=== PATIENT | male | born 1960 | race Caucasian/White ===

== ENCOUNTER 2018-11-12 09:10 | Inpatient (IN) ==
[2018-11-12] MEDS ORDERED: SODIUM CHLORIDE 0.9% 1000ML 1,000 ML IV SCH (09:30)
--- NOTE | 2018-11-12 09:34 | Emergency Department Note ---
Entered by Traci Johnson acting as a scribe for Clifford Mireles DO History of Present Illness General Chief complaint: Neuro Symptoms/Deficit Source: EMS Limitations: altered mental status History of Present Illness Onset (ago): day(s) 2 Location: head Pain Consistency: + other (episode) Quality: + other (altered mental status, neuro symptoms) Associated symptoms: + other (cold symptoms); no fever/chills (fever) The patient is a 58-year-old male who presented to the emergency department via EMS. The patient is unable to give history so history is extremely limited. History was obtained from the prehospital personnel. The patient was last known well on Saturday. Apparently he lives [place] a convenience store and the people to the [facility] for state that he was complaining that he did not feel well last week and had cold symptoms. The patient had no reported fever. His last known well time was Saturday when he was seen at the store buying cold medication. The patient has no history of trauma. The patient offers no complaints at this time but when asked questions he only answers with his name or he asked about where his sister is. The patient's blood sugar was not low prior to arrival. The prehospital personnel called for medical command prior to arrival but the patient was not made a stroke alert because his last known well time was greater than 24 hours ago. Home Medications Home Medications Medication Instructions Recorded Confirmed Type No Known Home Medications 11/12/18 11/12/18 History Allergies Allergy/AdvReac Type Severity Reaction Status Date / Time [id number] Allergy Mild Uncoded 02/19/06 12:38 Past Med/Surg History Surgical History History of lumbar fusion Family History Other No significant family history Social History Preferred Language: Macedonian Beliefs That Will Affect Care: None marital status: Current Living Situation: Alone current occupational status: disabled Feels Safe at Home: Yes Smoking Status: Current every day smoker Hx Alcohol Use: No Hx Substance Use: No Review of Systems See HPI for pertinent positives & negatives. Unobtainable due to cognitive status Physical Exam Vital Signs Vital Signs - 24 hr 11/12/18 09:15 11/12/18 09:18 11/12/18 09:29 Temperature 36.4 C L Temperature Source Oral Sepsis Recent Fever Within 48 Hours No Sepsis New/Unexplained Change in Mental Status Yes Sepsis Action Taken by Nursing No Action Required Pulse Rate 97 H 93 H 96 H Pulse Rate [Apical] Pulse Rate [Finger] Pulse Rate from SpO2 Sensor 97 H 93 H Pulse Rhythm [Apical] Pulse Strength [Apical] Respiratory Rate 21 19 22 Respiratory Effort / Characteristics Respiratory Depth Respiratory Pattern Blood Pressure 190/97 H 190/97 H Blood Pressure [Right Arm] Blood Pressure Mean 128 128 Blood Pressure Mean [Right Arm] Blood Pressure Position [Right Arm] Pulse Oximetry 94 94 92 Oxygen Delivery Method Room Air Oxygen Flow Rate 11/12/18 09:30 11/12/18 10:08 11/12/18 10:24 Temperature Temperature Source Sepsis Recent Fever Within 48 Hours Sepsis New/Unexplained Change in Mental Status Sepsis Action Taken by Nursing Pulse Rate 93 H 83 Pulse Rate [Apical] 82 Pulse Rate [Finger] Pulse Rate from SpO2 Sensor 92 H 86 84 Pulse Rhythm [Apical] Pulse Strength [Apical] Respiratory Rate 25 H 20 Respiratory Effort / Characteristics Respiratory Depth Normal Respiratory Pattern Blood Pressure 175/93 H Blood Pressure [Right Arm] 175/93 H Blood Pressure Mean 120 Blood Pressure Mean [Right Arm] 120 Blood Pressure Position [Right Arm] Pulse Oximetry 89 L 89 L 92 Oxygen Delivery Method Room Air Oxygen Flow Rate 11/12/18 10:25 11/12/18 10:30 11/12/18 10:50 Temperature Temperature Source Sepsis Recent Fever Within 48 Hours Sepsis New/Unexplained Change in Mental Status Sepsis Action Taken by Nursing Pulse Rate 78 Pulse Rate [Apical] Pulse Rate [Finger] Pulse Rate from SpO2 Sensor 79 Pulse Rhythm [Apical] Pulse Strength [Apical] Respiratory Rate 21 Respiratory Effort / Characteristics Non-Labored Spontaneous Respiratory Depth Normal Respiratory Pattern Regular Blood Pressure Blood Pressure [Right Arm] Blood Pressure Mean Blood Pressure Mean [Right Arm] Blood Pressure Position [Right Arm] Pulse Oximetry 92 96 Oxygen Delivery Method Nasal Cannula Nasal Cannula Oxygen Flow Rate 2 2 11/12/18 11:00 11/12/18 11:01 11/12/18 11:30 Temperature Temperature Source Sepsis Recent Fever Within 48 Hours Sepsis New/Unexplained Change in Mental Status Sepsis Action Taken by Nursing Pulse Rate 82 81 84 Pulse Rate [Apical] Pulse Rate [Finger] Pulse Rate from SpO2 Sensor 83 81 84 Pulse Rhythm [Apical] Pulse Strength [Apical] Respiratory Rate 21 17 20 Respiratory Effort / Characteristics Respiratory Depth Respiratory Pattern Blood Pressure 163/104 H Blood Pressure [Right Arm] Blood Pressure Mean 123 Blood Pressure Mean [Right Arm] Blood Pressure Position [Right Arm] Pulse Oximetry 97 96 94 Oxygen Delivery Method Oxygen Flow Rate 11/12/18 13:02 11/12/18 15:11 11/12/18 15:40 Temperature 36.8 C 36.8 C Temperature Source Oral Oral Sepsis Recent Fever Within 48 Hours Sepsis New/Unexplained Change in Mental Status Sepsis Action Taken by Nursing Pulse Rate Pulse Rate [Apical] 78 Pulse Rate [Finger] 82 Pulse Rate from SpO2 Sensor Pulse Rhythm [Apical] Regular Pulse Strength [Apical] Normal Respiratory Rate 20 18 Respiratory Effort / Characteristics Non-Labored Spontaneous Non-Labored Spontaneous Respiratory Depth Normal Normal Respiratory Pattern Regular Regular Blood Pressure Blood Pressure [Right Arm] 168/84 H 152/83 H Blood Pressure Mean Blood Pressure Mean [Right Arm] 112 106 Blood Pressure Position [Right Arm] Lying Lying Pulse Oximetry 93 94 Oxygen Delivery Method Nasal Cannula Nasal Cannula Nasal Cannula Oxygen Flow Rate 2 2 2 11/12/18 16:00 11/12/18 19:49 11/12/18 23:30 Temperature 36.7 C Temperature Source Oral Sepsis Recent Fever Within 48 Hours Sepsis New/Unexplained Change in Mental Status Sepsis Action Taken by Nursing Pulse Rate 78 Pulse Rate [Apical] Pulse Rate [Finger] 78 Pulse Rate from SpO2 Sensor Pulse Rhythm [Apical] Pulse Strength [Apical] Respiratory Rate 20 Respiratory Effort / Characteristics Non-Labored Spontaneous Respiratory Depth Respiratory Pattern Blood Pressure Blood Pressure [Right Arm] 155/81 H Blood Pressure Mean Blood Pressure Mean [Right Arm] 105 Blood Pressure Position [Right Arm] Lying Pulse Oximetry 94 Oxygen Delivery Method Nasal Cannula Nasal Cannula Oxygen Flow Rate 2 4 11/12/18 23:43 11/13/18 03:18 11/13/18 04:47 Temperature 36.6 C 36.7 C 36.7 C Temperature Source Oral Oral Sepsis Recent Fever Within 48 Hours Sepsis New/Unexplained Change in Mental Status Sepsis Action Taken by Nursing Pulse Rate Pulse Rate [Apical] 78 Pulse Rate [Finger] 72 79 79 Pulse Rate from SpO2 Sensor Pulse Rhythm [Apical] Pulse Strength [Apical] Respiratory Rate 22 18 18 Respiratory Effort / Characteristics Respiratory Depth Respiratory Pattern Blood Pressure Blood Pressure [Right Arm] 124/62 115/66 115/66 Blood Pressure Mean Blood Pressure Mean [Right Arm] 82 82 Blood Pressure Position [Right Arm] Pulse Oximetry 95 95 95 Oxygen Delivery Method Oxygen Flow Rate 4 4 GENERAL: The patient is awake and looking around the room. He follows commands slowly and intermittently. He appears to be somewhat anxious. EYES: The conjunctivae are clear. The pupils are round and reactive. EARS, NOSE, MOUTH AND THROAT: The nose is without any evidence of any deformity. Mucous membranes are moist tongue is midline NECK: The neck is nontender and supple. RESPIRATORY: Diminished breath sounds are noted at the right base. There is no tachypnea or conversational dyspnea. CARDIOVASCULAR: Regular rate and rhythm noted there no murmurs rubs or gallops normal S1 normal S2 GASTROINTESTINAL: The abdomen is soft. Bowel sounds are present in all quadrants. Abdomen is nontender BACK: No midline tenderness or or step-off noted range of motion in flexion extension as well as rotation no signs of muscle spasm noted MUSCULOSKELETAL/EXTREMITIES: There is no evidence of gross deformity full range of motion is noted in the hips and shoulders SKIN: There is no obvious evidence of any rash. No pedal edema was noted. Patient has cuts over his face that appear to be from shaving. He also has a slight rash on his right flank which is easily blanchable. NEUROLOGIC: Patient is awake and oriented to name only. He does follow com mands slowly. Patellar tendon reflexes are 2+ bilaterally. No facial droop was noted. Die Hardener strength appeared symmetric but diminished. Course 0926: Past medical records reviewed. The patient was evaluated in room A9B, and a complete history and physical examination were performed. 1045: I reviewed the patient's case with Dr. Pat PECK Hospitalist. He will evaluate the patient for further management. 1100: I spoke to the patient's daughter at this time and updated her on his test results. She informed me that he is a smoker and never goes to the doctors. She reports that when he comes to he is going to be extremely mad that he is at the hospital. Consultations Consultation #1: I reviewed the patient's case with Dr. Pat PECK Hospitalist. He will evaluate the patient for further management. Time: 10:45 Administered Medications Discontinued Medications Dexamethasone (Decadron) 10 mg IV NOW STA Stop: 11/12/18 09:47 Last Admin: 11/12/18 10:28 Dose: 10 mg Documented by: [id number] Gadobutrol (Gadavist 65ml) 8 ml IV ONCE PRN PRN Reason: Interaction Checking Stop: 11/16/18 19:31 Last Admin: 11/12/18 19:33 Dose: 8 ml Documented by: [id number] Heparin Sodium/Dextrose () 1 ea N/A ONE ONE; Protocol Stop: 11/12/18 10:40 Last Admin: 11/12/18 11:28 Dose: 1 ea Documented by: [id number] Heparin Sodium/Dextrose (Heparin Sodium/Dextrose) Confirm Administered Dose 25,000 units IV .STK-MED ONE Stop: 11/12/18 11:22 Last Admin: 11/12/18 11:26 Dose: 28 ml Documented by: [id number] Cosigned by: [id number] Heparin Sodium/Dextrose () 1 ea IV Q15M EMPERATRIZ; Protocol Stop: 11/13/18 04:00 Last Admin: 11/13/18 02:09 Dose: Not Given Documented by: [id number] Sodium Chloride (Nss 1000ml) 1,000 mls @ 50 mls/hr IV .Q20H EMPERATRIZ Stop: 12/12/18 09:29 Last Admin: 11/12/18 10:28 Dose: 50 mls/hr Documented by: [id number] Ceftriaxone Sodium 2,000 mg/ (Dextrose) 70 mls @ 100 mls/hr IV NOW STA Stop: 11/12/18 10:27 Last Infusion: 11/12/18 11:29 Dose: 0 mls/hr Documented by: [id number] Admin: 11/12/18 10:28 Dose: 100 mls/hr Documented by: [id number] Vancomycin HCl 1,750 mg/ (Sodium Chloride) 535 mls @ 200 mls/hr IV ONE ONE Stop: 11/12/18 13:25 Last Infusion: 11/12/18 14:51 Dose: 0 mls/hr Documented by: [id number] Admin: 11/12/18 11:26 Dose: 200 mls/hr Documented by: [id number] Ampicillin Sodium 2,000 mg/ (Sodium Chloride) 100 mls @ 200 mls/hr IV ONE ONE Stop: 11/12/18 11:59 Last Infusion: 11/12/18 12:12 Dose: 0 mls/hr Documented by: [id number] Admin: 11/12/18 11:45 Dose: 200 mls/hr Documented by: [id number] Sodium Chloride (Nss 1000ml) 1,000 mls @ 999 mls/hr IV .Q1H1M ONE Stop: 11/12/18 11:32 Last Infusion: 11/12/18 14:51 Dose: 0 mls/hr Documented by: [id number] Admin: 11/12/18 11:31 Dose: 999 mls/hr Documented by: [id number] Piperacillin Sod/Tazobactam (Sod 3.375 gm/ Dextrose) 115 mls @ 28.75 mls/hr IV Q8H EMPERATRIZ; Protocol Stop: 11/14/18 19:59 Last Infusion: 11/13/18 00:54 Dose: 0 mls/hr Documented by: [id number] Admin: 11/12/18 20:45 Dose: 28.8 mls/hr Documented by: [id number] Potassium Chloride 20 meq/ (Lactated Ringer's) 1,010 mls @ 125 mls/hr IV .Q8H5M EMPERATRIZ Stop: 11/13/18 05:45 Last Admin: 11/12/18 14:23 Dose: 125 mls/hr Documented by: [id number] Azithromycin 500 mg/ Dextrose 255 mls @ 127.5 mls/hr IV NOW STA Stop: 11/12/18 15:13 Last Infusion: 11/12/18 16:25 Dose: 0 mls/hr Documented by: [id number] Admin: 11/12/18 14:24 Dose: 127.5 mls/hr Documented by: [id number] Vancomycin HCl 1,000 mg/ (Sodium Chloride) 270 mls @ 125 mls/hr IV Q12H EMPERATRIZ Stop: 11/14/18 12:57 Last Admin: 11/12/18 13:37 Dose: Not Given Documented by: [id number] Piperacillin Sod/Tazobactam (Sod 3.375 gm/ Dextrose) 115 mls @ 230 mls/hr IV ONE ONE; Protocol Stop: 11/12/18 16:29 Last Infusion: 11/12/18 15:11 Dose: 0 mls/hr Documented by: [id number] Admin: 11/12/18 14:23 Dose: 230 mls/hr Documented by: [id number] Heparin Sodium/Dextrose (Heparin Sodium/Dextrose) 25,000 units in 500 mls @ 28 mls/hr IV .[id number] EMPERATRIZ; Protocol Stop: 12/12/18 13:59 Last Admin: 11/12/18 14:53 Dose: 1,400 units/hr, 28 mls/hr Documented by: [id number] Cosigned by: [id number] Potassium Phosphate 15 mmol/ (Sodium Chloride) 255 mls @ 88 mls/hr IV ONE ONE Stop: 11/12/18 18:08 Last Infusion: 11/13/18 01:25 Dose: 0 mls/hr Documented by: [id number] Admin: 11/12/18 15:42 Dose: 88 mls/hr Documented by: [id number] Vancomycin HCl 1,250 mg/ (Sodium Chloride) 275 mls @ 125 mls/hr IV Q14H EMPERATRIZ Stop: 11/14/18 21:59 Last Admin: 11/13/18 02:06 Dose: 125 mls/hr Documented by: [id number] Heparin Sodium (Porcine) 6,000 (units/ Syringe) 6 mls @ 1 mls/min IV ONE ONE Stop: 11/12/18 18:35 Last Admin: 11/12/18 20:44 Dose: 1 mls/min Documented by: [id number] Cosigned by: [id number] Sodium Phosphate 15 mmol/ (Sodium Chloride) 255 mls @ 88 mls/hr IV ONE ONE Stop: 11/12/18 23:08 Last Infusion: 11/13/18 01:25 Dose: 0 mls/hr Documented by: [id number] Admin: 11/12/18 20:44 Dose: 88 mls/hr Documented by: [id number] Ioversol (Optiray 320 125ml) 119 ml IV ONCE PRN PRN Reason: Interaction Checking Stop: 11/16/18 10:10 Last Admin: 11/12/18 10:12 Dose: 119 ml Documented by: [id number] Lidocaine HCl (Xylocaine 1% (Local)) Confirm Administered Dose 20 ml .ROUTE .STK-MED ONE Stop: 11/12/18 10:06 Last Admin: 11/12/18 10:29 Dose: Not Given Documented by: [id number] Lidocaine HCl (Xylocaine 1% (Local)) 10 ml INFIL NOW ONE Stop: 11/12/18 10:07 Last Admin: 11/12/18 10:28 Dose: 10 ml Documented by: [id number] Medical Decision Making Differential Diagnosis Etiologies such as metabolic, infection, hyp/hyperglycemia, electrolyte abnormalities, cardiac sources, intracerebral event, toxicologic, neurologic, as well as others were entertained. Medical Records Attestation: I reviewed the patient's medical records. Home Medications Current Medication List: was personally reviewed by me Laboratory Data Attestation: I reviewed the patient's lab results. Result diagrams: 11/12/18 08:45 11/12/18 08:45 Lab Results 11/12/18 11/12/18 11/12/18 Range/Units 08:45 08:45 08:45 WBC 13.67 H (4.8-10.8) K/uL RBC 5.47 (4.7-6.1) M/uL Hgb 15.8 (14.0-18.0) g/dL Hct 45.0 (42-52) % MCV 82.3 (80-100) fL MCH 28.9 (25-34) pg MCHC 35.1 (32-36) g/dL RDW Std Deviation 38.7 (36.4-46.3) fL RDW Coeff of Jayshree 12.8 (11.5-14.5) % Plt Count 170 (130-400) K/uL MPV 9.9 (7.4-10.4) fL Immature Gran % (Auto) 0.4 % Neut % (Auto) 80.8 % Lymph % (Auto) 4.8 % [place] % (Auto) 9.7 % Eos % (Auto) 4.1 % Baso % (Auto) 0.2 % Immature Gran # (Auto) 0.05 H (0.00-0.02) K/uL Neut # (Auto) 11.04 H (1.4-6.5) K/uL Lymph # (Auto) 0.66 L (1.2-3.4) K/uL [place] # (Auto) 1.33 H (0.11-0.59) K/uL Eos # (Auto) 0.56 H (0-0.5) K/uL Baso # (Auto) 0.03 (0-0.2) K/uL PT 11.8 (9.0-12.0) Seconds INR 1.2 H (0.9-1.1) APTT 27.3 (21.0-31.0) Seconds PTT Ratio 1.0 ABG pH (7.35-7.45) ABG pCO2 (35-46) mmHg ABG pO2 (80-95) mm/Hg ABG HCO3 (19-24) mmol/L ABG O2 Saturation (90-95) % ABG Base Excess (-9-1.8) mEq/L Cheikh Test (Pos) Barometric Pressure mm/Hg Oxygen Given Sodium 136 (136-145) mmol/L Potassium 3.4 L (3.5-5.1) mmol/L Chloride 105 (98-107) mmol/L Carbon Dioxide 25 (21-32) mmol/L Anion Gap 6.0 (3-11) BUN 15 (7-18) mg/dl Creatinine 1.12 (0.6-1.4) mg/dl Est Cr Clr Drug Dosing Not Reportable Est GFR ( Amer) 82.3 Est GFR (Non-Af Amer) 71.0 BUN/Creatinine Ratio 13.3 (10-20) Glucose 152 H (70-99) mg/dl POC Glucose (70-99) Estimat Average Glucose mg/dl Hemoglobin A1c (4.5-5.6) % Osmolality (280-300) mOsm/kg Calcium 8.8 (8.5-10.1) mg/dl Phosphorus (2.5-4.9) mg/dl Magnesium 2.2 (1.8-2.4) mg/dl Total Bilirubin 0.6 (0.2-1) mg/dl AST 26 (15-37) U/L ALT 33 (12-78) U/L Alkaline Phosphatase 122 H (45-117) U/L Ammonia (11-32) umol/L CK-MB (CK-2) 1.2 (0.5-3.6) ng/ml CK/CKMB % Calc Not Reportable Troponin I 0.298 H* (0-0.045) ng/ml NT-Pro-B Natriuret Pep (0-900) pg/ml Total Protein 7.7 (6.4-8.2) gm/dl Albumin 3.4 (3.4-5.0) gm/dl Globulin 4.3 H (2.5-4.0) gm/dl Albumin/Globulin Ratio 0.8 L (0.9-2) Procalcitonin (0-0.5) ng/ml TSH (0.300-4.500) uIu/ml Free T4 (0.8-1.6) ng/dl Urine Color Urine Appearance (Clear) Urine pH (4.5-7.5) Ur Specific [place] (1.000-1.030) Urine Protein (Negative) Urine Glucose (UA) (Negative) Urine Ketones (Negative) Urine Blood (Negative) Urine Nitrite (Negative) Urine Bilirubin (Negative) Urine Urobilinogen (Negative) Ur Leukocyte Esterase (Negative) Urine Opiates Screen (Neg) Ur Methadone, Qual (Neg) Urine Barbiturates (Neg) Ur Phencyclidine (PCP) (Neg) U Amphetamin/Meth Scrn (Neg) MDMA (Ecstasy) Screen (Neg) U Benzodiazepines Scrn (Neg) Ur Cocaine Metabolite (Neg) U Marijuana (THC) Screen (Neg) Ethyl Alcohol mg/dL (0-3) mg/dl Lyme Disease IgG Ab (Negative) Lyme Disease IgM Ab (Negative) Hepatitis C Ab Screen (Neg) Influenza Type A (PCR) (Neg) Influenza Type B (PCR) (Neg) 11/12/18 11/12/18 11/12/18 Range/Units 08:45 08:45 08:45 WBC (4.8-10.8) K/uL RBC (4.7-6.1) M/uL Hgb (14.0-18.0) g/dL Hct (42-52) % MCV (80-100) fL MCH (25-34) pg MCHC (32-36) g/dL RDW Std Deviation (36.4-46.3) fL RDW Coeff of Jayshree (11.5-14.5) % Plt Count (130-400) K/uL MPV (7.4-10.4) fL Immature Gran % (Auto) % Neut % (Auto) % Lymph % (Auto) % [place] % (Auto) % Eos % (Auto) % Baso % (Auto) % Immature Gran # (Auto) (0.00-0.02) K/uL Neut # (Auto) (1.4-6.5) K/uL Lymph # (Auto) (1.2-3.4) K/uL [place] # (Auto) (0.11-0.59) K/uL Eos # (Auto) (0-0.5) K/uL Baso # (Auto) (0-0.2) K/uL PT (9.0-12.0) Seconds INR (0.9-1.1) APTT (21.0-31.0) Seconds PTT Ratio ABG pH (7.35-7.45) ABG pCO2 (35-46) mmHg ABG pO2 (80-95) mm/Hg ABG HCO3 (19-24) mmol/L ABG O2 Saturation (90-95) % ABG Base Excess (-9-1.8) mEq/L Cheikh Test (Pos) Barometric Pressure mm/Hg Oxygen Given Sodium (136-145) mmol/L Potassium (3.5-5.1) mmol/L Chloride (98-107) mmol/L Carbon Dioxide (21-32) mmol/L Anion Gap (3-11) BUN (7-18) mg/dl Creatinine (0.6-1.4) mg/dl Est Cr Clr Drug Dosing Est GFR ( Amer) Est GFR (Non-Af Amer) BUN/Creatinine Ratio (10-20) Glucose (70-99) mg/dl POC Glucose (70-99) Estimat Average Glucose mg/dl Hemoglobin A1c (4.5-5.6) % Osmolality 287 (280-300) mOsm/kg Calcium (8.5-10.1) mg/dl Phosphorus (2.5-4.9) mg/dl Magnesium (1.8-2.4) mg/dl Total Bilirubin (0.2-1) mg/dl AST (15-37) U/L ALT (12-78) U/L Alkaline Phosphatase (45-117) U/L Ammonia (11-32) umol/L CK-MB (CK-2) (0.5-3.6) ng/ml CK/CKMB % Calc Troponin I (0-0.045) ng/ml NT-Pro-B Natriuret Pep (0-900) pg/ml Total Protein (6.4-8.2) gm/dl Albumin (3.4-5.0) gm/dl Globulin (2.5-4.0) gm/dl Albumin/Globulin Ratio (0.9-2) Procalcitonin (0-0.5) ng/ml TSH (0.300-4.500) uIu/ml Free T4 (0.8-1.6) ng/dl Urine Color Urine Appearance (Clear) Urine pH (4.5-7.5) Ur Specific [place] (1.000-1.030) Urine Protein (Negative) Urine Glucose (UA) (Negative) Urine Ketones (Negative) Urine Blood (Negative) Urine Nitrite (Negative) Urine Bilirubin (Negative) Urine Urobilinogen (Negative) Ur Leukocyte Esterase (Negative) Urine Opiates Screen (Neg) Ur Methadone, Qual (Neg) Urine Barbiturates (Neg) Ur Phencyclidine (PCP) (Neg) U Amphetamin/Meth Scrn (Neg) MDMA (Ecstasy) Screen (Neg) U Benzodiazepines Scrn (Neg) Ur Cocaine Metabolite (Neg) U Marijuana (THC) Screen (Neg) Ethyl Alcohol mg/dL (0-3) mg/dl Lyme Disease IgG Ab Negative (Negative) Lyme Disease IgM Ab Negative (Negative) Hepatitis C Ab Screen Neg (Neg) Influenza Type A (PCR) (Neg) Influenza Type B (PCR) (Neg) 11/12/18 11/12/18 11/12/18 Range/Units 09:24 09:39 10:40 WBC (4.8-10.8) K/uL RBC (4.7-6.1) M/uL Hgb (14.0-18.0) g/dL Hct (42-52) % MCV (80-100) fL MCH (25-34) pg MCHC (32-36) g/dL RDW Std Deviation (36.4-46.3) fL RDW Coeff of Jayshree (11.5-14.5) % Plt Count (130-400) K/uL MPV (7.4-10.4) fL Immature Gran % (Auto) % Neut % (Auto) % Lymph % (Auto) % [place] % (Auto) % Eos % (Auto) % Baso % (Auto) % Immature Gran # (Auto) (0.00-0.02) K/uL Neut # (Auto) (1.4-6.5) K/uL Lymph # (Auto) (1.2-3.4) K/uL [place] # (Auto) (0.11-0.59) K/uL Eos # (Auto) (0-0.5) K/uL Baso # (Auto) (0-0.2) K/uL PT (9.0-12.0) Seconds INR (0.9-1.1) APTT (21.0-31.0) Seconds PTT Ratio ABG pH (7.35-7.45) ABG pCO2 (35-46) mmHg ABG pO2 (80-95) mm/Hg ABG HCO3 (19-24) mmol/L ABG O2 Saturation (90-95) % ABG Base Excess (-9-1.8) mEq/L Cheikh Test (Pos) Barometric Pressure mm/Hg Oxygen Given Sodium (136-145) mmol/L Potassium (3.5-5.1) mmol/L Chloride (98-107) mmol/L Carbon Dioxide (21-32) mmol/L Anion Gap (3-11) BUN (7-18) mg/dl Creatinine (0.6-1.4) mg/dl Est Cr Clr Drug Dosing Est GFR ( Amer) Est GFR (Non-Af Amer) BUN/Creatinine Ratio (10-20) Glucose (70-99) mg/dl POC Glucose 140 H (70-99) Estimat Average Glucose mg/dl Hemoglobin A1c (4.5-5.6) % Osmolality (280-300) mOsm/kg Calcium (8.5-10.1) mg/dl Phosphorus (2.5-4.9) mg/dl Magnesium (1.8-2.4) mg/dl Total Bilirubin (0.2-1) mg/dl AST (15-37) U/L ALT (12-78) U/L Alkaline Phosphatase (45-117) U/L Ammonia (11-32) umol/L CK-MB (CK-2) (0.5-3.6) ng/ml CK/CKMB % Calc Troponin I (0-0.045) ng/ml NT-Pro-B Natriuret Pep (0-900) pg/ml Total Protein (6.4-8.2) gm/dl Albumin (3.4-5.0) gm/dl Globulin (2.5-4.0) gm/dl Albumin/Globulin Ratio (0.9-2) Procalcitonin (0-0.5) ng/ml TSH (0.300-4.500) uIu/ml Free T4 (0.8-1.6) ng/dl Urine Color Urine Appearance (Clear) Urine pH (4.5-7.5) Ur Specific [place] (1.000-1.030) Urine Protein (Negative) Urine Glucose (UA) (Negative) Urine Ketones (Negative) Urine Blood (Negative) Urine Nitrite (Negative) Urine Bilirubin (Negative) Urine Urobilinogen (Negative) Ur Leukocyte Esterase (Negative) Urine Opiates Screen (Neg) Ur Methadone, Qual (Neg) Urine Barbiturates (Neg) Ur Phencyclidine (PCP) (Neg) U Amphetamin/Meth Scrn (Neg) MDMA (Ecstasy) Screen (Neg) U Benzodiazepines Scrn (Neg) Ur Cocaine Metabolite (Neg) U Marijuana (THC) Screen (Neg) Ethyl Alcohol mg/dL < 3.0 (0-3) mg/dl Lyme Disease IgG Ab (Negative) Lyme Disease IgM Ab (Negative) Hepatitis C Ab Screen (Neg) Influenza Type A (PCR) Neg for Influ A (Neg) Influenza Type B (PCR) Neg for Influ B (Neg) 11/12/18 11/12/18 11/12/18 Range/Units 12:15 12:15 13:34 WBC (4.8-10.8) K/uL RBC (4.7-6.1) M/uL Hgb (14.0-18.0) g/dL Hct (42-52) % MCV (80-100) fL MCH (25-34) pg MCHC (32-36) g/dL RDW Std Deviation (36.4-46.3) fL RDW Coeff of Jayshree (11.5-14.5) % Plt Count (130-400) K/uL MPV (7.4-10.4) fL Immature Gran % (Auto) % Neut % (Auto) % Lymph % (Auto) % [place] % (Auto) % Eos % (Auto) % Baso % (Auto) % Immature Gran # (Auto) (0.00-0.02) K/uL Neut # (Auto) (1.4-6.5) K/uL Lymph # (Auto) (1.2-3.4) K/uL [place] # (Auto) (0.11-0.59) K/uL Eos # (Auto) (0-0.5) K/uL Baso # (Auto) (0-0.2) K/uL PT (9.0-12.0) Seconds INR (0.9-1.1) APTT (21.0-31.0) Seconds PTT Ratio ABG pH (7.35-7.45) ABG pCO2 (35-46) mmHg ABG pO2 (80-95) mm/Hg ABG HCO3 (19-24) mmol/L ABG O2 Saturation (90-95) % ABG Base Excess (-9-1.8) mEq/L [place] Test (Pos) Barometric Pressure mm/Hg Oxygen Given Sodium (136-145) mmol/L Potassium (3.5-5.1) mmol/L Chloride (98-107) mmol/L Carbon Dioxide (21-32) mmol/L Anion Gap (3-11) BUN (7-18) mg/dl Creatinine (0.6-1.4) mg/dl Est Cr Clr Drug Dosing Est GFR ( Amer) Est GFR (Non-Af Amer) BUN/Creatinine Ratio (10-20) Glucose (70-99) mg/dl POC Glucose (70-99) Estimat Average Glucose mg/dl Hemoglobin A1c (4.5-5.6) % Osmolality (280-300) mOsm/kg Calcium (8.5-10.1) mg/dl Phosphorus (2.5-4.9) mg/dl Magnesium (1.8-2.4) mg/dl Total Bilirubin (0.2-1) mg/dl AST (15-37) U/L ALT (12-78) U/L Alkaline Phosphatase (45-117) U/L Ammonia (11-32) umol/L CK-MB (CK-2) (0.5-3.6) ng/ml CK/CKMB % Calc Troponin I (0-0.045) ng/ml NT-Pro-B Natriuret Pep (0-900) pg/ml Total Protein (6.4-8.2) gm/dl Albumin (3.4-5.0) gm/dl Globulin (2.5-4.0) gm/dl Albumin/Globulin Ratio (0.9-2) Procalcitonin 0.09 (0-0.5) ng/ml TSH (0.300-4.500) uIu/ml Free T4 (0.8-1.6) ng/dl Urine Color Yellow Urine Appearance Clear (Clear) Urine pH 7.5 (4.5-7.5) Ur Specific [place] 1.038 H (1.000-1.030) Urine Protein Negative (Negative) Urine Glucose (UA) Negative (Negative) Urine Ketones Negative (Negative) Urine Blood Negative (Negative) Urine Nitrite Negative (Negative) Urine Bilirubin Negative (Negative) Urine Urobilinogen Negative (Negative) Ur Leukocyte Esterase Negative (Negative) Urine Opiates Screen Neg (Neg) Ur Methadone, Qual Neg (Neg) Urine Barbiturates Neg (Neg) Ur Phencyclidine (PCP) Neg (Neg) U Amphetamin/Meth Scrn Neg (Neg) MDMA (Ecstasy) Screen Neg (Neg) U Benzodiazepines Scrn Neg (Neg) Ur Cocaine Metabolite Neg (Neg) U Marijuana (THC) Screen Pos H (Neg) Ethyl Alcohol mg/dL (0-3) mg/dl Lyme Disease IgG Ab (Negative) Lyme Disease IgM Ab (Negative) Hepatitis C Ab Screen (Neg) Influenza Type A (PCR) (Neg) Influenza Type B (PCR) (Neg) 11/12/18 11/12/18 11/12/18 Range/Units 13:35 13:35 13:35 WBC (4.8-10.8) K/uL RBC (4.7-6.1) M/uL Hgb (14.0-18.0) g/dL Hct (42-52) % MCV (80-100) fL MCH (25-34) pg MCHC (32-36) g/dL RDW Std Deviation (36.4-46.3) fL RDW Coeff of Jayshree (11.5-14.5) % Plt Count (130-400) K/uL MPV (7.4-10.4) fL Immature Gran % (Auto) % Neut % (Auto) % Lymph % (Auto) % [place] % (Auto) % Eos % (Auto) % Baso % (Auto) % Immature Gran # (Auto) (0.00-0.02) K/uL Neut # (Auto) (1.4-6.5) K/uL Lymph # (Auto) (1.2-3.4) K/uL [place] # (Auto) (0.11-0.59) K/uL Eos # (Auto) (0-0.5) K/uL Baso # (Auto) (0-0.2) K/uL PT (9.0-12.0) Seconds INR (0.9-1.1) APTT (21.0-31.0) Seconds PTT Ratio ABG pH (7.35-7.45) ABG pCO2 (35-46) mmHg ABG pO2 (80-95) mm/Hg ABG HCO3 (19-24) mmol/L ABG O2 Saturation (90-95) % ABG Base Excess (-9-1.8) mEq/L Cheikh Test (Pos) Barometric Pressure mm/Hg Oxygen Given Sodium (136-145) mmol/L Potassium (3.5-5.1) mmol/L Chloride (98-107) mmol/L Carbon Dioxide (21-32) mmol/L Anion Gap (3-11) BUN (7-18) mg/dl Creatinine (0.6-1.4) mg/dl Est Cr Clr Drug Dosing Est GFR ( Amer) Est GFR (Non-Af Amer) BUN/Creatinine Ratio (10-20) Glucose (70-99) mg/dl POC Glucose (70-99) Estimat Average Glucose 114 mg/dl Hemoglobin A1c 5.6 (4.5-5.6) % Osmolality (280-300) mOsm/kg Calcium (8.5-10.1) mg/dl Phosphorus 2.1 L (2.5-4.9) mg/dl Magnesium (1.8-2.4) mg/dl Total Bilirubin (0.2-1) mg/dl AST (15-37) U/L ALT (12-78) U/L Alkaline Phosphatase (45-117) U/L Ammonia < 10.0 L (11-32) umol/L CK-MB (CK-2) (0.5-3.6) ng/ml CK/CKMB % Calc Troponin I 0.275 H* (0-0.045) ng/ml NT-Pro-B Natriuret Pep 710 (0-900) pg/ml Total Protein (6.4-8.2) gm/dl Albumin (3.4-5.0) gm/dl Globulin (2.5-4.0) gm/dl Albumin/Globulin Ratio (0.9-2) Procalcitonin (0-0.5) ng/ml TSH 0.205 L (0.300-4.500) uIu/ml Free T4 1.63 H (0.8-1.6) ng/dl Urine Color Urine Appearance (Clear) Urine pH (4.5-7.5) Ur Specific [place] (1.000-1.030) Urine Protein (Negative) Urine Glucose (UA) (Negative) Urine Ketones (Negative) Urine Blood (Negative) Urine Nitrite (Negative) Urine Bilirubin (Negative) Urine Urobilinogen (Negative) Ur Leukocyte Esterase (Negative) Urine Opiates Screen (Neg) Ur Methadone, Qual (Neg) Urine Barbiturates (Neg) Ur Phencyclidine (PCP) (Neg) U Amphetamin/Meth Scrn (Neg) MDMA (Ecstasy) Screen (Neg) U Benzodiazepines Scrn (Neg) Ur Cocaine Metabolite (Neg) U Marijuana (THC) Screen (Neg) Ethyl Alcohol mg/dL (0-3) mg/dl Lyme Disease IgG Ab (Negative) Lyme Disease IgM Ab (Negative) Hepatitis C Ab Screen (Neg) Influenza Type A (PCR) (Neg) Influenza Type B (PCR) (Neg) 11/12/18 11/12/18 11/13/18 Range/Units 13:35 17:32 00:08 WBC (4.8-10.8) K/uL RBC (4.7-6.1) M/uL Hgb (14.0-18.0) g/dL Hct (42-52) % MCV (80-100) fL MCH (25-34) pg MCHC (32-36) g/dL RDW Std Deviation (36.4-46.3) fL RDW Coeff of Jayshree (11.5-14.5) % Plt Count (130-400) K/uL MPV (7.4-10.4) fL Immature Gran % (Auto) % Neut % (Auto) % Lymph % (Auto) % [place] % (Auto) % Eos % (Auto) % Baso % (Auto) % Immature Gran # (Auto) (0.00-0.02) K/uL Neut # (Auto) (1.4-6.5) K/uL Lymph # (Auto) (1.2-3.4) K/uL [place] # (Auto) (0.11-0.59) K/uL Eos # (Auto) (0-0.5) K/uL Baso # (Auto) (0-0.2) K/uL PT (9.0-12.0) Seconds INR (0.9-1.1) APTT 33.0 H (21.0-31.0) Seconds PTT Ratio 1.2 ABG pH 7.48 H (7.35-7.45) ABG pCO2 28 L (35-46) mmHg ABG pO2 56 L (80-95) mm/Hg ABG HCO3 21 (19-24) mmol/L ABG O2 Saturation 90.2 (90-95) % ABG Base Excess -1.4 (-9-1.8) mEq/L Cheikh Test Pos (Pos) Barometric Pressure 742.0 mm/Hg Oxygen Given 2 l Sodium (136-145) mmol/L Potassium (3.5-5.1) mmol/L Chloride (98-107) mmol/L Carbon Dioxide (21-32) mmol/L Anion Gap (3-11) BUN (7-18) mg/dl Creatinine (0.6-1.4) mg/dl Est Cr Clr Drug Dosing Est GFR ( Amer) Est GFR (Non-Af Amer) BUN/Creatinine Ratio (10-20) Glucose (70-99) mg/dl POC Glucose (70-99) Estimat Average Glucose mg/dl Hemoglobin A1c (4.5-5.6) % Osmolality (280-300) mOsm/kg Calcium (8.5-10.1) mg/dl Phosphorus (2.5-4.9) mg/dl Magnesium (1.8-2.4) mg/dl Total Bilirubin (0.2-1) mg/dl AST (15-37) U/L ALT (12-78) U/L Alkaline Phosphatase (45-117) U/L Ammonia (11-32) umol/L CK-MB (CK-2) (0.5-3.6) ng/ml CK/CKMB % Calc Troponin I 0.173 H* (0-0.045) ng/ml NT-Pro-B Natriuret Pep (0-900) pg/ml Total Protein (6.4-8.2) gm/dl Albumin (3.4-5.0) gm/dl Globulin (2.5-4.0) gm/dl Albumin/Globulin Ratio (0.9-2) Procalcitonin (0-0.5) ng/ml TSH (0.300-4.500) uIu/ml Free T4 (0.8-1.6) ng/dl Urine Color Urine Appearance (Clear) Urine pH (4.5-7.5) Ur Specific [place] (1.000-1.030) Urine Protein (Negative) Urine Glucose (UA) (Negative) Urine Ketones (Negative) Urine Blood (Negative) Urine Nitrite (Negative) Urine Bilirubin (Negative) Urine Urobilinogen (Negative) Ur Leukocyte Esterase (Negative) Urine Opiates Screen (Neg) Ur Methadone, Qual (Neg) Urine Barbiturates (Neg) Ur Phencyclidine (PCP) (Neg) U Amphetamin/Meth Scrn (Neg) MDMA (Ecstasy) Screen (Neg) U Benzodiazepines Scrn (Neg) Ur Cocaine Metabolite (Neg) U Marijuana (THC) Screen (Neg) Ethyl Alcohol mg/dL (0-3) mg/dl Lyme Disease IgG Ab (Negative) Lyme Disease IgM Ab (Negative) Hepatitis C Ab Screen (Neg) Influenza Type A (PCR) (Neg) Influenza Type B (PCR) (Neg) Imaging Data Radiologist's Impression: Radiology results as stated below per my review and the radiologist's interpretation: XR chest 1V portable CLINICAL HISTORY: altered dyspnea COMPARISON STUDY: No previous studies for comparison. FINDINGS: Mild cardiomegaly. Diffuse parenchymal infiltrate right mid to lower lung. Diaphragms are smooth. Costophrenic angles are sharp. IMPRESSION: Diffuse right hemithoracic infiltrate. This should be closely followed to ensure complete resolution The above report was generated using voice recognition software. It may contain grammatical, syntax or spelling errors. Electronically signed by: Jamal Luna M.D. 11/12/2018 9:[address] angio head w con HISTORY: Mental status change. altered TECHNIQUE: Multiaxial CT angiography of the head was performed IV contrast: 100 cc Maximum intensity projection images were also obtained. A dose lowering technique was utilized adhering to the principles of ALARA. COMPARISON: None. FINDINGS: There is no mass, hematoma, midline shift, or acute infarct. Visualized intracranial internal carotid arteries, distal vertebral arteries, and basilar artery are widely patent. There is no significant stenosis, occlusion, or aneurysm seen within the bilateral ACAs, MCAs, or investment specialist. IMPRESSION: No significant stenosis, occlusion, or aneurysm within the [place]. The above report was generated using voice recognition software. It may contain grammatical, syntax or spelling errors. Electronically signed by: Jamal Luna M.D. 11/12/2018 10:[address] head/brain wo con CLINICAL HISTORY: 58 years-old Male with Stroke evaluation . Acute strokelike symptoms TECHNIQUE: Multiple axial CT images of the head were obtained without contrast. A dose lowering technique was utilized adhering to the principles of ALARA. COMPARISON: CTA head neck of same day. FINDINGS: No acute intracranial hemorrhage, midline shift, intracranial mass, hydrocephalus, or abnormal extra-axial collection. Cerebral arterial calcifications noted. Ill-defined hypodensity noted about the left temporal lobe with possible blurring of the shaffer-white interface. The calvarium is intact. Mastoid air cells and middle ear cavities are clear. Mild mucosal thickening about the ethmoid air cells. Soft tissues and orbits appear unremarkable. IMPRESSION: 1. No acute intracranial hemorrhage, or midline shift. 2. Ill-defined hypodensity about the inferior left temporal lobe may be artifactual or reflective of underlying acute infarction about the left MCA territory. Correlation clinically recommended. The above report was generated using voice recognition software. It may contain grammatical, syntax or spelling errors. Electronically signed by: Dale Heard M.D. 11/12/2018 10:[address] ANGIOGRAPHY OF THE NECK WITH CONTRAST CLINICAL HISTORY: Altered mental status. Stroke evaluation. COMPARISON STUDY: No previous studies for comparison. Technique: CT angiography of the carotid and vertebral arteries was obtained using [employer] 320 IV and 3D reconstruction on an independent workstation. NASCET criteria was utilized. Automated exposure control was utilized for the study. A dose lowering technique was utilized adhering to the principles of ALARA. Findings: Please note that the CTA of the head and chest report separately. Asymmetric interlobular septal thickening within the right lung apex is noted. Several pulmonary emboli are noted. There is moderate plaque within the proximal left internal carotid artery without significant stenosis. There is mild plaque within the proximal right internal carotid artery without significant stenosis. There is no dissection. The bilateral vertebral arteries are patent. Thoracic lymphadenopathy is better depicted on the chest CT. Borderline enlarged left supraclavicular lymph nodes are noted. IMPRESSION: 1. Mild to moderate atherosclerotic plaque within the proximal bilateral internal carotid arteries without significant stenosis. 2. Multiple pulmonary emboli and thoracic lymphadenopathy which are better depicted on the chest CT. Asymmetric interlobular septal thickening within the right lung which may reflect lymphangitic carcinomatosis or asymmetric pulmonary edema. Electronically signed by: Albin Khan M.D. 11/12/2018 10:[address] angio chest PE protocol CT DOSE: 1488.32 mGy.cm HISTORY: Chest pain PE TECHNIQUE: Multiaxial CT images of the chest were performed following the intravenous administration of contrast to evaluate the pulmonary arteries. Maximal intensity projection images were also obtained. A dose lowering technique was utilized adhering to the principles of ALARA. COMPARISON STUDY: None. FINDINGS: Bilateral diffuse pulmonary emboli. Consolidative infiltrate right base versus potential mass measuring 7.5 cm. Multifocal parenchymal nodularity versus infiltrative change throughout both hemithoraces. Diffuse increase in right hemithoracic markings. Adenopathy involving the right hilum mediastinum and subcarinal region. Possibility of an underlying neoplastic process versus septic emboli must be considered. IMPRESSION: 1. Study is positive for bilateral pulmonary emboli. 2. Multifocal masses versus septic emboli bilaterally with conglomerate masslike process right base versus consolidative infiltrate. 3. Bulky right hilar as well as mid mediastinal adenopathy. 4. Multifocal septic emboli versus neoplasm must be considered. 5. Superimposed interstitial infiltrative changes throughout the right lung. The above report was generated using voice recognition software. It may contain grammatical, syntax or spelling errors. Electronically signed by: Jamal Luna M.D. 11/12/2018 10:29 AM ECG Data Attestation: I personally reviewed and interpreted this ECG as follows: Indication: altered mental status Rate (beats per minute): 91 Rhythm: normal sinus Findings: no PAC, no PVC, no ST depression, no ST elevation and no ectopy Comparison ECG Date: no prior available Blood Pressure Blood Pressure Findings: Elevated blood pressure Blood Pressure Disposition: further management by hospitalist FREDRICK Orozco The patient is a 58-year-old male who presented to the emergency department for an evaluation of altered mental status. We received a medical command call about the patient prior to arrival. There is concerned that this could represent a stroke however the last known well time was over 24 hours. The patient is a 58-year-old male who does have a tobacco history but was living on his own in his usual state of health according to his daughter who I did have the opportunity to speak with after the patient had been here for a while. The patient was very confused and had an expressive aphasia. The patient had no other focal neurologic deficits. He was hypoxic and was found to have a large pulmonary infiltrate. Because of the concerns by the prehospital personnel, we did put a stroke workup in on the patient however given his hypoxia and his findings on physical exam as well as chest x-ray CT angiography of the head neck and chest were obtained. Multiple findings were noted including the possibility of a stroke on the plain CT but no angiographically significant occlusion was noted on angiography of the neck or head. There was multiple pulmonary emboli noted bilaterally on the patient. The patient also had a large infiltrative process which could be consistent with infection or possibly neoplastic process. The patient does have a long tobacco history so this is a possibility. The patient was treated with supplemental oxygen IV fluids as well as IV antibiotics. He was also given IV steroids for the possibility of meningitis however I was unable to do a lumbar puncture because of the patient's venous thromboembolic disease he would require anticoagulation and I felt that this was more important at the time and just to treat him empirically with antibiotics. I discussed the patient's condition with his daughter. She is aware that he is very ill at this time. I also discussed his case with the on-call [facility] hospitalist. Certainly the patient may require further workup including MRI of the brain. The patient did have an MRI of the brain last evening which did show bilateral findings. The patient had been reevaluated multiple times. He had a small amount of improvement on subsequent reevaluation but still remained very confused with a large expressive aphasia. The patient was not a candidate for TPA given his unknown onset of symptoms. Impression & Plan Altered mental status, Encephalopathy, Bilateral pulmonary embolism, Hypoxia, Pneumonia, Lung mass, Aphasia Critical Care Time I have personally spent greater than 40 minutes of critical care time in the direct management of this patient. This includes bedside care, interpretation of diagnostic studies, and testing, discussion with consultants, patient, and family members, and other required patient management activities. This 40 minutes is in excess of all separately billable procedures. Critical Care Time: Yes Total Critical Care Time: 40 Discharge Plan Visit Data *Final* Discharge Date/Time: 11/12/18 12:24 Chief Complaint: Neuro Symptoms/Deficit ED Provider: Clifford Mireles Discharge Problem: Altered mental status, Encephalopathy, Bilateral pulmonary embolism, Hypoxia, Pneumonia, Lung mass, Aphasia Patient Disposition: Admitted As Inpatient Discharge Instructions Interventions: ED Discharge Assessment Last Done: 11/12/18 12:24 The scribe's documentation has been prepared under my direction and personally reviewed by me in its entirety. I confirm that the note above accurately reflects all work, treatment, procedures, and medical decision making performed by me.
[2018-11-12 09:38] LABS: Basophils # (auto) 0.03 K/uL (0-0.2); Basophils % (auto) 0.2 %; Eosinophils # (auto) 0.56 K/uL (0-0.5); Eosinophils % (auto) 4.1 %; Hemoglobin 15.8 g/dL (14.0-18.0); Immature Granulocytes # (auto) 0.05 K/uL (0.00-0.02); Immature Granulocytes % (auto) 0.4 %; Lymphocytes # (auto) 0.66 K/uL (1.2-3.4); Lymphocytes % (auto) 4.8 %; Mean Corpuscular Hgb Conc 35.1 g/dL (32-36); Mean Corpuscular Volume 82.3 fL (80-100); Mean Platelet Volume 9.9 fL (7.4-10.4); Monocytes # (auto) 1.33 K/uL (0.11-0.59); Monocytes % (auto) 9.7 %; Neutrophils # (auto) 11.04 K/uL (1.4-6.5); Neutrophils % (auto) 80.8 %; Platelet Count 170 K/uL (130-400); RDW Coefficient of Variation 12.8 % (11.5-14.5); RDW Standard Deviation 38.7 fL (36.4-46.3); Red Blood Count 5.47 M/uL (4.7-6.1); White Blood Count 13.67 K/uL (4.8-10.8)
--- NOTE | 2018-11-12 09:44 | XRay Report ---
XR chest 1V portable CLINICAL HISTORY: altered dyspnea COMPARISON STUDY: No previous studies for comparison. FINDINGS: Mild cardiomegaly. Diffuse parenchymal infiltrate right mid to lower lung. Diaphragms are s mooth. Costophrenic angles are sharp. IMPRESSION: Diffuse right hemithoracic infiltrate. This should be closely followed to ensure complet e resolution The above report was generated using voice recognition software. It may contain grammatical, syntax or spelling errors. Electronically signed by: Jamal Luna M.D. 11/12/2018 9:43 AM
[2018-11-12 09:45] LABS: Alanine Aminotransferase 33 U/L (12-78); Albumin Level 3.4 gm/dl (3.4-5.0); Aspartate Aminotransferase 26 U/L (15-37); BUN Creatinine Ratio 13.3 (10-20); Blood Urea Nitrogen 15 mg/dl (7-18); Calcium 8.8 mg/dl (8.5-10.1); Carbon Dioxide 25 mmol/L (21-32); Chloride 105 mmol/L (98-107); Est GFR (African American) 82.3; Glucose 152 mg/dl (70-99); Magnesium 2.2 mg/dl (1.8-2.4); Potassium 3.4 mmol/L (3.5-5.1); Sodium 136 mmol/L (136-145)
[2018-11-12] MEDS ORDERED: DEXAMETHASONE SOD INJ 4 MG/ML VIAL IV STA (09:46)
[2018-11-12] MEDS ORDERED: cefTRIAXone SODIUM 2,000 MG in DEXTROSE 5% 50 ML IV STA (09:46)
[2018-11-12 09:56] LABS: Albumin Globulin Ratio 0.8 (0.9-2); Alkaline Phosphatase 122 U/L (45-117); Bilirubin,Total 0.6 mg/dl (0.2-1); Creatine Kinase MB 1.2 ng/ml (0.5-3.6); Globulin 4.3 gm/dl (2.5-4.0); Total Protein 7.7 gm/dl (6.4-8.2); Troponin I 0.298 ng/ml (0-0.045)
[2018-11-12 09:57] LABS: INR 1.2 (0.9-1.1); Partial Thromboplastin Time 27.3 Seconds (21.0-31.0); Prothrombin Time 11.8 Seconds (9.0-12.0)
[2018-11-12] MEDS ORDERED: LIDOCAINE HCL 1% 20 ML VIAL ONE (10:05)
[2018-11-12] MEDS ORDERED: LIDOCAINE HCL 1% 20 ML VIAL INFIL ONE (10:06)
[2018-11-12] MEDS ORDERED: OPTIRAY 320 125ml IV PRN (10:11)
--- NOTE | 2018-11-12 10:22 | CT Scan Report ---
CT head/brain wo con CLINICAL HISTORY: 58 years-old Male with Stroke evaluation . Acute strokelike symptoms TECHNIQUE: Multiple axial CT images of the head were obtained without contrast. A dose lowering tech nique was utilized adhering to the principles of ALARA. COMPARISON: CTA head neck of same day. FINDINGS: No acute intracranial hemorrhage, midline shift, intracranial mass, hydrocephalus, or abnormal extra- axial collection. Cerebral arterial calcifications noted. Ill-defined hypodensity noted about the lef t temporal lobe with possible blurring of the shaffer-white interface. The calvarium is intact. Mastoid air cells and middle ear cavities are clear. Mild mucosal thickenin g about the ethmoid air cells. Soft tissues and orbits appear unremarkable. IMPRESSION: 1. No acute intracranial hemorrhage, or midline shift. 2. Ill-defined hypodensity about the inferior left temporal lobe may be artifactual or reflective of underlying acute infarction about the left MCA territory. Correlation clinically recommended. The above report was generated using voice recognition software. It may contain grammatical, syntax o r spelling errors. Electronically signed by: Dale Heard M.D. 11/12/2018 10:21 AM
[2018-11-12 10:29] LABS: Lyme Ab IgG w/WB Rflx Negative (Negative); Lyme Ab IgM w/WB Rflx Negative (Negative)
--- NOTE | 2018-11-12 10:31 | CT Scan Report ---
CT ANGIOGRAPHY OF THE NECK WITH CONTRAST CLINICAL HISTORY: Altered mental status. Stroke evaluation. COMPARISON STUDY: No previous studies for comparison. Technique: CT angiography of the carotid and vertebral arteries was obtained using [id number] [place] 320 IV and 3D reconstruction on an independent workstation. NASCET criteria was utilized. Automated exposure c ontrol was utilized for the study. A dose lowering technique was utilized adhering to the principles of ALARA. Findings: Please note that the CTA of the head and chest report separately. Asymmetric interlobular s eptal thickening within the right lung apex is noted. Several pulmonary emboli are noted. There is mo derate plaque within the proximal left internal carotid artery without significant stenosis. There is mild plaque within the proximal right internal carotid artery without significant stenosis. There is no dissection. The bilateral vertebral arteries are patent. Thoracic lymphadenopathy is better depic monique on the chest CT. Borderline enlarged left supraclavicular lymph nodes are noted. IMPRESSION: 1. Mild to moderate atherosclerotic plaque within the proximal bilateral internal carotid arteries wi thout significant stenosis. 2. Multiple pulmonary emboli and thoracic lymphadenopathy which are better depicted on the chest CT. Asymmetric interlobular septal thickening within the right lung which may reflect lymphangitic carcin omatosis or asymmetric pulmonary edema. Electronically signed by: Albin Khan M.D. 11/12/2018 10:29 AM
--- NOTE | 2018-11-12 10:31 | CT Scan Report ---
CT angio chest PE protocol CT DOSE: 1488.32 mGy.cm HISTORY: Chest pain PE TECHNIQUE: Multiaxial CT images of the chest were performed following the intravenous administration of contrast to evaluate the pulmonary arteries. Maximal intensity projection images were also obtaine d. A dose lowering technique was utilized adhering to the principles of ALARA. COMPARISON STUDY: None. FINDINGS: Bilateral diffuse pulmonary emboli. Consolidative infiltrate right base versus potential ma ss measuring 7.5 cm. Multifocal parenchymal nodularity versus infiltrative change throughout both hemithoraces. Diffuse increase in right hemithoracic markings. Adenopathy involving the right hilum mediastinum and subcarinal region. Possibility of an underlying neoplastic process versus septic emboli must be cons idered. IMPRESSION: 1. Study is positive for bilateral pulmonary emboli. 2. Multifocal masses versus septic emboli bilaterally with conglomerate masslike process right base v ersus consolidative infiltrate. 3. Bulky right hilar as well as mid mediastinal adenopathy. 4. Multifocal septic emboli versus neoplasm must be considered. 5. Superimposed interstitial infiltrative changes throughout the right lung. The above report was generated using voice recognition software. It may contain grammatical, syntax or spelling errors. Electronically signed by: Jamal Luna M.D. 11/12/2018 10:29 AM
[2018-11-12] MEDS ORDERED: SODIUM CHLORIDE 0.9% 1000ML 1,000 ML IV ONE (10:32)
--- NOTE | 2018-11-12 10:33 | CT Scan Report ---
CT angio head w con HISTORY: Mental status change. altered TECHNIQUE: Multiaxial CT angiography of the head was performed IV contrast: 100 cc Maximum i ntensity projection images were also obtained. A dose lowering technique was utilized adhering to th e principles of ALARA. COMPARISON: None. FINDINGS: There is no mass, hematoma, midline shift, or acute infarct. Visualized intracranial internal carver al carotid arteries, distal vertebral arteries, and basilar artery are widely patent. There is no sig nificant stenosis, occlusion, or aneurysm seen within the bilateral ACAs, MCAs, or devops. IMPRESSION: No significant stenosis, occlusion, or aneurysm within the [place]. The above report was generated using voice recognition software. It may contain grammatical, syntax or spelling errors. Electronically signed by: Jamal Luna M.D. 11/12/2018 10:32 AM
[2018-11-12] MEDS ORDERED: Heparin IV Standard *NO* Bolus ONE (10:39)
[2018-11-12] MEDS ORDERED: VANCOMYCIN HCL 1,750 MG in SODIUM CHLORIDE 0.9% 500 ML IV ONE (10:45)
[2018-11-12] MEDS ORDERED: HEPARIN 25000 UNIT/500 ML D5W IV ONE (11:21)
[2018-11-12] MEDS ORDERED: AMPICILLIN 2,000 MG in SODIUM CHLOR 0.9% AD-VAN 100 ML IV ONE (11:30)
[2018-11-12 11:38] LABS: Influenza A virus by PCR Neg for Influ A (Neg); Influenza B virus by PCR Neg for Influ B (Neg)
--- NOTE | 2018-11-12 12:22 | History & Physical Report ---
Date of Service November 12, 2018 Assessment & Plan (1) Bilateral pulmonary embolism: Presently HD stable. Requiring minimal O2 via NC -Heparin gtt -Check BNP -Check 2D echo -Monitor closely for VS instability (2) Lung mass: Multifocal lesions vs septic emboli. Patient with history of smoking. Does not routinely see a physician -Sputum for gram stain/culture and cytology -Consult Pulmonology - appreciate assistance (3) Altered mental status: Possibly secondary to hypoxia, underlying infection -Check Ammonia level, TSH, Utox -Check ABG to assess degree of hypoxia -Correction of dehydration -Infectious workup and IV antibiotics as below -Supplemental O2 (4) Hypoxia: Most likely secondary to PE, possible malignancy vs septic emboli, ?underlying COPD/Asthma -Check ABG -Supplemental O2 as needed to maintain sats > 94 (5) Pneumonia: Afebrile, mild leukocytosis -Check procalcitonin -Sputum culture and gram stain -Vancomycin, Zosyn and Azithromycin for broad coverage initially, tailor pending culture results and clinical condition -Follow culture results (6) Weakness of left foot: ?CVA vs peripheral nerve compression. Patient with history of multiple back surgeries. Symptoms of possible foot drop began 3 weeks ago per daughter -MRI Brain -MRI L spine pending results of brain study -PT/OT eval when clinical condition improves F/E/N - LR at 125mL/hr x 2 liters, monitor electrolyltes and replete as needed Ppx - Heparin gtt Code - Full Dispo - PCU History of Present Illness Chief Complaint: AMS Primary Care Provider: NO PCP Patient is severely altered and is unable to provide cam components of the history. History obtained through discussion with ER attending as well as patient's daughter (Kenia Pimentel: [phone]) Mr. Pimentel is a 58yo C male with unknown past medical history, seemingly absent from care for many years per daughter. He presents today with altered mental status. Daughter states that she spoke with her father 1.5 weeks ago. At that time he stated that he was not feeling well. That he was short of breath and having a difficult time walking short distances in his home due to dyspnea. He also states mentioned that 1.5 weeks ago (3 weeks prior to presentation today) both of his feet went numb and "dropped" and he was having a difficult time ambulating. Daughter reports that the numbness of the left foot largely resolved but patient was still complaining of numbness in the left foot with difficulty ambulating. The patient lives alone in an apartment [place] a store in [place]. This AM he was feeling confused and was unable to remember his own name. He shouted down to the landlord that he was confused. The landlord called the patient's daughter and then EMS. Patient was transported to [facility]. On arrival here he was found to be afebrile, hypertensive at 190/97, tachypneic at 25bpm and saturating 89% on room air. He was placed on 2L NC with improvement in saturation to 96%. CTA of the chest in full detail below confirmed presence of bilateral PEs with concern for septic emboli vs multifocal masses with an infiltrate vs mass in the right base. Patient also with bulky right hilar and mid-mediastinal adenopathy with interstitial infiltrative changes in the right lung. Head CT with an ill- defined hypodensity in the inferior left temporal lone, artifact vs acute infarct. Patient answers "Dalton Pimentel" and "I don't know" to all questioning. ER Course: Ampicillin 2gm, Ceftriaxone 2gm, Dexamethasone 10mg IV, Heparin gtt, NSS x 2 L, Vancomycin 1750mg Allergies Allergy/AdvReac Type Severity Reaction Status Date / Time [id number] Allergy Mild Uncoded 02/19/06 12:38 Home Medications Home Medications Medication Instructions Recorded Confirmed Type No Known Home Medications 11/12/18 11/12/18 History Past Med/Surg History Surgical History History of lumbar fusion Family History Other No significant family history Social History Preferred Language: Belarusian Communication Ability: Impaired Beliefs That Will Affect Care: None marital status: Current Living Situation: Alone current occupational status: disabled Feels Safe at Home: Yes Smoking Status: Current every day smoker Hx Alcohol Use: No Hx Substance Use: No Review of Systems Unobtainable due to cognitive status Physical Exam Vital Signs (Past 24 Hours): Last Vital Signs Temp 36.4 C L 11/12/18 09:29 Pulse 84 11/12/18 11:30 Resp 20 11/12/18 11:30 BP 163/104 H 11/12/18 11:00 Pulse Ox 94 11/12/18 11:30 Physical Exam: General: patient somnolent, arousable, ill in appearance, oriented to self only Skin: warm, dry, intact, multiple tattoos, small well demarcated, blanchable, erythematous region on right lower abdomen HEENT: NC/AT, PERRL, EOMI with slow tracking and some horizontal nystagmus, anicteric sclera, conjunctiva without injection, external ear normal to inspection and nontender, nares patent, moist mucus membranes, dentures in place, no oropharyngeal lesions, neck supple, no meningismus, trachea midline, no LAD in cervical or clavicular regions, no thyromegaly, no JVD Heart: +S1/S2, regular, soft 2/6 GE at cardiac apex, no rubs/gallops Lungs: equal air entry bilaterally,coarse breath sounds bialterally, R > L Abd: +BS, soft, NT/ND, no masses/organomegaly/ascites, small umbilical hernia, soft and reducible, seemingly nontender Ext: warm, 2+ pulses in UE/LE bilaterally, no clubbing/cyanosis or edema Neuro: difficult exam, patient is oriented to self, speech is slow, no facial droop, states he cannot feel light touch anywhere on his body, MS in UE 4/5 bilaterally, MS in RLE 5/5 and LLE 2/5 Results & Data Laboratory Results Lab Results 11/12/18 11/12/18 11/12/18 Range/Units 08:45 08:45 08:45 WBC 13.67 H (4.8-10.8) K/uL RBC 5.47 (4.7-6.1) M/uL Hgb 15.8 (14.0-18.0) g/dL Hct 45.0 (42-52) % MCV 82.3 (80-100) fL MCH 28.9 (25-34) pg MCHC 35.1 (32-36) g/dL RDW Std Deviation 38.7 (36.4-46.3) fL RDW Coeff of Jayshree 12.8 (11.5-14.5) % Plt Count 170 (130-400) K/uL MPV 9.9 (7.4-10.4) fL Immature Gran % (Auto) 0.4 % Neut % (Auto) 80.8 % Lymph % (Auto) 4.8 % Jefferson % (Auto) 9.7 % Eos % (Auto) 4.1 % Baso % (Auto) 0.2 % Immature Gran # (Auto) 0.05 H (0.00-0.02) K/uL Neut # (Auto) 11.04 H (1.4-6.5) K/uL Lymph # (Auto) 0.66 L (1.2-3.4) K/uL Jefferson # (Auto) 1.33 H (0.11-0.59) K/uL Eos # (Auto) 0.56 H (0-0.5) K/uL Baso # (Auto) 0.03 (0-0.2) K/uL PT 11.8 (9.0-12.0) Seconds INR 1.2 H (0.9-1.1) APTT 27.3 (21.0-31.0) Seconds PTT Ratio 1.0 Sodium 136 (136-145) mmol/L Potassium 3.4 L (3.5-5.1) mmol/L Chloride 105 (98-107) mmol/L Carbon Dioxide 25 (21-32) mmol/L Anion Gap 6.0 (3-11) BUN 15 (7-18) mg/dl Creatinine 1.12 (0.6-1.4) mg/dl Est Cr Clr Drug Dosing Not Reportable Est GFR ( Amer) 82.3 Est GFR (Non-Af Amer) 71.0 BUN/Creatinine Ratio 13.3 (10-20) Glucose 152 H (70-99) mg/dl POC Glucose (70-99) Osmolality (280-300) mOsm/kg Calcium 8.8 (8.5-10.1) mg/dl Magnesium 2.2 (1.8-2.4) mg/dl Total Bilirubin 0.6 (0.2-1) mg/dl AST 26 (15-37) U/L ALT 33 (12-78) U/L Alkaline Phosphatase 122 H (45-117) U/L CK-MB (CK-2) 1.2 (0.5-3.6) ng/ml CK/CKMB % Calc Not Reportable Troponin I 0.298 H* (0-0.045) ng/ml Total Protein 7.7 (6.4-8.2) gm/dl Albumin 3.4 (3.4-5.0) gm/dl Globulin 4.3 H (2.5-4.0) gm/dl Albumin/Globulin Ratio 0.8 L (0.9-2) Ethyl Alcohol mg/dL (0-3) mg/dl Lyme Disease IgG Ab (Negative) Lyme Disease IgM Ab (Negative) Influenza Type A (PCR) (Neg) Influenza Type B (PCR) (Neg) 11/12/18 11/12/18 11/12/18 Range/Units 08:45 08:45 09:24 WBC (4.8-10.8) K/uL RBC (4.7-6.1) M/uL Hgb (14.0-18.0) g/dL Hct (42-52) % MCV (80-100) fL MCH (25-34) pg MCHC (32-36) g/dL RDW Std Deviation (36.4-46.3) fL RDW Coeff of Jayshree (11.5-14.5) % Plt Count (130-400) K/uL MPV (7.4-10.4) fL Immature Gran % (Auto) % Neut % (Auto) % Lymph % (Auto) % Jefferson % (Auto) % Eos % (Auto) % Baso % (Auto) % Immature Gran # (Auto) (0.00-0.02) K/uL Neut # (Auto) (1.4-6.5) K/uL Lymph # (Auto) (1.2-3.4) K/uL Jefferson # (Auto) (0.11-0.59) K/uL Eos # (Auto) (0-0.5) K/uL Baso # (Auto) (0-0.2) K/uL PT (9.0-12.0) Seconds INR (0.9-1.1) APTT (21.0-31.0) Seconds PTT Ratio Sodium (136-145) mmol/L Potassium (3.5-5.1) mmol/L Chloride (98-107) mmol/L Carbon Dioxide (21-32) mmol/L Anion Gap (3-11) BUN (7-18) mg/dl Creatinine (0.6-1.4) mg/dl Est Cr Clr Drug Dosing Est GFR ( Amer) Est GFR (Non-Af Amer) BUN/Creatinine Ratio (10-20) Glucose (70-99) mg/dl POC Glucose 140 H (70-99) Osmolality 287 (280-300) mOsm/kg Calcium (8.5-10.1) mg/dl Magnesium (1.8-2.4) mg/dl Total Bilirubin (0.2-1) mg/dl AST (15-37) U/L ALT (12-78) U/L Alkaline Phosphatase (45-117) U/L CK-MB (CK-2) (0.5-3.6) ng/ml CK/CKMB % Calc Troponin I (0-0.045) ng/ml Total Protein (6.4-8.2) gm/dl Albumin (3.4-5.0) gm/dl Globulin (2.5-4.0) gm/dl Albumin/Globulin Ratio (0.9-2) Ethyl Alcohol mg/dL (0-3) mg/dl Lyme Disease IgG Ab Negative (Negative) Lyme Disease IgM Ab Negative (Negative) Influenza Type A (PCR) (Neg) Influenza Type B (PCR) (Neg) 11/12/18 11/12/18 Range/Units 09:39 10:40 WBC (4.8-10.8) K/uL RBC (4.7-6.1) M/uL Hgb (14.0-18.0) g/dL Hct (42-52) % MCV (80-100) fL MCH (25-34) pg MCHC (32-36) g/dL RDW Std Deviation (36.4-46.3) fL RDW Coeff of Jayshree (11.5-14.5) % Plt Count (130-400) K/uL MPV (7.4-10.4) fL Immature Gran % (Auto) % Neut % (Auto) % Lymph % (Auto) % Jefferson % (Auto) % Eos % (Auto) % Baso % (Auto) % Immature Gran # (Auto) (0.00-0.02) K/uL Neut # (Auto) (1.4-6.5) K/uL Lymph # (Auto) (1.2-3.4) K/uL Jefferson # (Auto) (0.11-0.59) K/uL Eos # (Auto) (0-0.5) K/uL Baso # (Auto) (0-0.2) K/uL PT (9.0-12.0) Seconds INR (0.9-1.1) APTT (21.0-31.0) Seconds PTT Ratio Sodium (136-145) mmol/L Potassium (3.5-5.1) mmol/L Chloride (98-107) mmol/L Carbon Dioxide (21-32) mmol/L Anion Gap (3-11) BUN (7-18) mg/dl Creatinine (0.6-1.4) mg/dl Est Cr Clr Drug Dosing Est GFR ( Amer) Est GFR (Non-Af Amer) BUN/Creatinine Ratio (10-20) Glucose (70-99) mg/dl POC Glucose (70-99) Osmolality (280-300) mOsm/kg Calcium (8.5-10.1) mg/dl Magnesium (1.8-2.4) mg/dl Total Bilirubin (0.2-1) mg/dl AST (15-37) U/L ALT (12-78) U/L Alkaline Phosphatase (45-117) U/L CK-MB (CK-2) (0.5-3.6) ng/ml CK/CKMB % Calc Troponin I (0-0.045) ng/ml Total Protein (6.4-8.2) gm/dl Albumin (3.4-5.0) gm/dl Globulin (2.5-4.0) gm/dl Albumin/Globulin Ratio (0.9-2) Ethyl Alcohol mg/dL < 3.0 (0-3) mg/dl Lyme Disease IgG Ab (Negative) Lyme Disease IgM Ab (Negative) Influenza Type A (PCR) Neg for Influ A (Neg) Influenza Type B (PCR) Neg for Influ B (Neg) Diagnostic Findings CT angio chest PE protocol CT DOSE: 1488.32 mGy.cm HISTORY: Chest pain PE TECHNIQUE: Multiaxial CT images of the chest were performed following the intravenous administration of contrast to evaluate the pulmonary arteries. Maximal intensity projection images were also obtained. A dose lowering technique was utilized adhering to the principles of ALARA. COMPARISON STUDY: None. FINDINGS: Bilateral diffuse pulmonary emboli. Consolidative infiltrate right base versus potential mass measuring 7.5 cm. Multifocal parenchymal nodularity versus infiltrative change throughout both hemithoraces. Diffuse increase in right hemithoracic markings. Adenopathy involving the right hilum mediastinum and subcarinal region. Possibility of an underlying neoplastic process versus septic emboli must be considered. IMPRESSION: 1. Study is positive for bilateral pulmonary emboli. 2. Multifocal masses versus septic emboli bilaterally with conglomerate masslike process right base versus consolidative infiltrate. 3. Bulky right hilar as well as mid mediastinal adenopathy. 4. Multifocal septic emboli versus neoplasm must be considered. 5. Superimposed interstitial infiltrative changes throughout the right lung. The above report was generated using voice recognition software. It may contain grammatical, syntax or spelling errors. Electronically signed by: Jamal Luna M.D. 11/12/2018 10:29 AM Dictated: 11/12/18 1021 Transcribed: 11/12/[address] ANGIOGRAPHY OF THE NECK WITH CONTRAST CLINICAL HISTORY: Altered mental status. Stroke evaluation. COMPARISON STUDY: No previous studies for comparison. Technique: CT angiography of the carotid and vertebral arteries was obtained using [employer] 320 IV and 3D reconstruction on an independent workstation. NASCET criteria was utilized. Automated exposure control was utilized for the study. A dose lowering technique was utilized adhering to the principles of ALARA. Findings: Please note that the CTA of the head and chest report separately. Asymmetric interlobular septal thickening within the right lung apex is noted. Several pulmonary emboli are noted. There is moderate plaque within the proximal left internal carotid artery without significant stenosis. There is mild plaque within the proximal right internal carotid artery without significant stenosis. There is no dissection. The bilateral vertebral arteries are patent. Thoracic lymphadenopathy is better depicted on the chest CT. Borderline enlarged left supraclavicular lymph nodes are noted. IMPRESSION: 1. Mild to moderate atherosclerotic plaque within the proximal bilateral internal carotid arteries without significant stenosis. 2. Multiple pulmonary emboli and thoracic lymphadenopathy which are better depicted on the chest CT. Asymmetric interlobular septal thickening within the right lung which may reflect lymphangitic carcinomatosis or asymmetric pulmonary edema. Electronically signed by: Albin Khan M.D. 11/12/2018 10:29 AM Dictated: 11/12/18 1023 Transcribed: 11/12/[address] angio head w con HISTORY: Mental status change. altered TECHNIQUE: Multiaxial CT angiography of the head was performed IV contrast: 100 cc Maximum intensity projection images were also obtained. A dose lowering technique was utilized adhering to the principles of ALARA. COMPARISON: None. FINDINGS: There is no mass, hematoma, midline shift, or acute infarct. Visualized intracranial internal carotid arteries, distal vertebral arteries, and basilar artery are widely patent. There is no significant stenosis, occ lusion, or aneurysm seen within the bilateral ACAs, MCAs, or seasonal package handler. IMPRESSION: No significant stenosis, occlusion, or aneurysm within the [place]. The above report was generated using voice recognition software. It may contain grammatical, syntax or spelling errors. Electronically signed by: Jamal Luna M.D. 11/12/2018 10:32 AM Dictated: 11/12/181029 Transcribed: 11/12/181029 XR chest 1V portable CLINICAL HISTORY: altered dyspnea COMPARISON STUDY: No previous studies for comparison. FINDINGS: Mild cardiomegaly. Diffuse parenchymal infiltrate right mid to lower lung. Diaphragms are smooth. Costophrenic angles are sharp. IMPRESSION: Diffuse right hemithoracic infiltrate. This should be closely followed to ensure complete resolution The above report was generated using voice recognition software. It may contain grammatical, syntax or spelling errors. Electronically signed by: Jamal Luna M.D. 11/12/2018 9:43 AM Dictated: 11/12/18 0942 Transcribed: 11/12/18941 -------- CT head/brain wo con CLINICAL HISTORY: 58 years-old Male with Stroke evaluation . Acute strokelike symptoms TECHNIQUE: Multiple axial CT images of the head were obtained without contrast. A dose lowering technique was utilized adhering to the principles of ALARA. COMPARISON: CTA head neck of same day. FINDINGS: No acute intracranial hemorrhage, midline shift, intracranial mass, hydrocephalus, or abnormal extra-axial collection. Cerebral arterial calcifications noted. Ill-defined hypodensity noted about the left temporal lobe with possible blurring of the shaffer-white interface. The calvarium is intact. Mastoid air cells and middle ear cavities are clear. Mild mucosal thickening about the ethmoid air cells. Soft tissues and orbits appear unremarkable. IMPRESSION: 1. No acute intracranial hemorrhage, or midline shift. 2. Ill-defined hypodensity about the inferior left temporal lobe may be artifactual or reflective of underlying acute infarction about the left MCA territory. Correlation clinically recommended. The above report was generated using voice recognition software. It may contain grammatical, syntax or spelling errors. Electronically signed by: Dale Heard M.D. 11/12/2018 10:21 AM Dictated: 11/12/18 1016 Transcribed: 11/12/18 1016 ECG Additional Comments: The study shows NSR at 91bpm, normal axis, IY=642, BOH=658, WoY=801, N OACUTE ISCHEMIC CHANGES Code Status & VTE Plan Code Status Full per discussion with daughter (1) Altered mental status Altered mental status type: unspecified Qualified Code(s): R41.82 - Altered mental status, unspecified (2) Pneumonia Laterality: unspecified laterality Lung location: unspecified part of lung Pneumonia type: due to unspecified organism Qualified Code(s): J18.9 - Pneumonia, unspecified organism
[2018-11-12 12:41] LABS: Appearance Urine Clear (Clear); Bilirubin Urine Negative (Negative); Blood Urine Negative (Negative); Color Urine Yellow; Glucose Urine UA Negative (Negative); Ketones Urine Negative (Negative); Leukocyte Esterase Urine Negative (Negative); Nitrite Urine Negative (Negative); Protein Urine Negative (Negative); Specific Gravity Urine 1.038 (1.000-1.030); Urobilinogen Urine Negative (Negative); pH Urine 7.5 (4.5-7.5)
[2018-11-12] MEDS ORDERED: PIPERACILL/TAZOBAC CONSULT ACTIVE PRN (12:58)
[2018-11-12] MEDS ORDERED: VANCOMYCIN HCL 1,000 MG in SODIUM CHLORIDE 0.9% 250 ML IV SCH (12:58)
[2018-11-12] MEDS ORDERED: VANCOMYCIN CONSULT ACTIVE PRN (12:58)
[2018-11-12] MEDS ORDERED: ONDANSETRON INJ 2 MG/ML 2 ML VIAL IV PRN (12:58)
[2018-11-12] MEDS ORDERED: ACETAMINOPHEN 325 MG TAB PO PRN (12:58)
[2018-11-12] MEDS ORDERED: AZITHROMYCIN 500 MG in DEXTROSE 5% 250 ML IV STA (13:14)
[2018-11-12 13:20] LABS: Amphetamines+Metham, Urine Neg (Neg); Barbiturates, Urine Neg (Neg); Benzodiazepine, Urine Neg (Neg); Cocaine, Urine Neg (Neg); MDMA (Ecstacy), Urine Neg (Neg); Methadone, Urine Neg (Neg); Opiate, Urine Neg (Neg); Phencyclidine, Urine Neg (Neg)
[2018-11-12] MEDS ORDERED: Heparin IV Standard *NO* Bolus IV SCH (13:30)
[2018-11-12] MEDS ORDERED: POTASSIUM CHLORIDE 20 MEQ in LACTATED RINGER'S 1,000 ML IV SCH (13:45)
[2018-11-12 13:56] LABS: HCO3 ABG 21 mmol/L (19-24); Oxygen Saturation ABG 90.2 % (90-95); PCO2 ABG 28 mmHg (35-46); PO2 ABG 56 mm/Hg (80-95); pH ABG 7.48 (7.35-7.45)
[2018-11-12 13:57] LABS: Allen Test Pos (Pos)
[2018-11-12] MEDS ORDERED: Heparin Adult STANDARD Wt-Based Dextrose 5% 25,000 units/500 mL IV SCH (14:00)
[2018-11-12 14:30] LABS: Phosphorus 2.1 mg/dl (2.5-4.9); Troponin I 0.275 ng/ml (0-0.045)
[2018-11-12] MEDS ORDERED: POTASSIUM PHOS 3 MMOL/1 ML INFUSION IV STA (14:37)
[2018-11-12 14:45] LABS: T4 Free Thyroxine 1.63 ng/dl (0.8-1.6)
[2018-11-12] MEDS ORDERED: POTASSIUM PHOSPHATE 15 MMOL in SODIUM CHLORIDE 0.9% 250 ML IV ONE (15:15)
--- NOTE | 2018-11-12 15:33 | Pharmacy Report ---
Pharmacy Abx Dose Short Note - Date of Service November 12, 2018 - Assessment & Plan Assessment 58 year old M receiving Vancomycin and zosyn for empiric treatment. Possible pneumonia? Day # 1 of antimicrobial therapy. * Received rocephin 2gm and ampicillin 2gm in the ED. * Pt admitted with bilateral pulmonary emboli. * Blood cultures pending. * Limited historical pt data, unable to assess baseline renal function. * Pt also receiving azithromycin iv. Plan Vancomycin * Received Loading dose of 1750mg (20mg/kg) in ED * Maintenance dose: 1250mg (15 mg/kg) IV q14 hours * No trough level ordered at this time. * Level will be ordered if therapy extended beyond 48 hours * Goal trough level : 15 to 20 mcg/mL Zosyn * 3.375gm x 1, then 3.375gm (extended interval) IV q 8 hours for crcl> 20ml/min Pharmacy will continue to follow and will adjust dose/frequency as necessary. Thank you.
[2018-11-12] MEDS ORDERED: PIPERACILLIN/TAZOBACTAM 3.375 GM in DEXTROSE 5% 100 ML IV ONE (16:00)
[2018-11-12 17:53] LABS: Partial Thromboplastin Ratio 1.2
--- NOTE | 2018-11-12 18:06 | XRay Report ---
ORBIT RADIOGRAPHS 3 VIEWS HISTORY: pre-MRI screening. COMPARISON: None. FINDINGS: There are no radiopaque foreign bodies identified within the orbits. IMPRESSION: No radiopaque foreign bodies identified within the orbits. Electronically signed by: Victor Hugo Bliss M.D. 11/12/2018 6:04 PM
[2018-11-12] MEDS ORDERED: HEPARIN IV BOLUS 6,000 UNITS in SYRINGE 0 ML IV ONE (18:30)
[2018-11-12] MEDS ORDERED: GADOBUTROL 65ML VIAL IV PRN (19:32)
[2018-11-12] MEDS ORDERED: SODIUM PHOSPHATE 3 MMOL/1 ML INFUSION IV STA (19:46)
--- NOTE | 2018-11-12 19:49 | Magnetic Resonance Report ---
MRI OF THE BRAIN WITHOUT AND WITH IV CONTRAST CLINICAL HISTORY: Acute change in mental status. Confusion, left-sided numbness. Possible stroke. COMPARISON STUDY: CT scan dated 11/12/2018 TECHNIQUE: MRI of the brain was performed from the vertex to the skull base utilizing various T1 and T2 weighted sequences. Following the IV administration of 8 mL of Gadavist contrast, additional enhan trudy images were obtained. FINDINGS: Sagittal T1, axial diffusion, proton density and T2 weighted axial, coronal FLAIR, and pre and post a xial T1-weighted images were acquired. These were supplemented with post gadolinium coronal T1 weight ed images. No intra or extra-axial mass lesions are visualized. There is a large area of restricted water diffusion involving portions of the left temporal occipital and parietal lobes. In addition there are punctate foci restricted water diffusion within the right hemisphere involving the right frontal lobe parietal lobe and occipital lobe. The findings are indica tive of acute cerebral infarcts. Given the bilateral distribution, embolic etiology must be considere d. There is no evidence of ventricular dilatation. Proton density T2-weighted and FLAIR images reveal scattered foci of increased T2 signal within the w fabiana matter, likely on a small vessel basis. In addition there is a confluent area of increased FLAIR signal within the left temporal and parietal lobe consistent with an acute infarct. There are no abnormal flow voids. There is no evidence of pathologic enhancement. IMPRESSION: 1. Large acute infarct involving portions the left temporal occipital and parietal lobes 2. In addition there are scattered small foci of restricted water diffusion involving portions of the right frontal, parietal and occipital lobes, indicative of additional acute infarcts 3. Given the multifocal distribution of the acute infarcts, an embolic etiology must be considered. Electronically signed by: Victor Hugo Bliss M.D. 11/12/2018 7:48 PM
[2018-11-12] MEDS ORDERED: PIPERACILLIN/TAZOBACTAM 3.375 GM in DEXTROSE 5% 100 ML IV SCH (20:00)
[2018-11-12] MEDS ORDERED: SODIUM PHOSPHATE 15 MMOL in SODIUM CHLORIDE 0.9% 250 ML IV ONE (20:15)
[2018-11-12] MEDS ORDERED: VANCOMYCIN HCL 1,250 MG in SODIUM CHLORIDE 0.9% 250 ML IV SCH (22:00)
--- NOTE | 2018-11-12 23:26 | Discharge Summary ---
Date of Service November 12, 2018 Admission HPI Per Admitting Provider Patient is severely altered and is unable to provide cam components of the history. History obtained through discussion with ER attending as well as patient's daughter (Kenia Pimentel: [phone]) Mr. Pimentel is a 58yo C male with unknown past medical history, seemingly absent from care for many years per daughter. He presents today with altered mental status. Daughter states that she spoke with her father 1.5 weeks ago. At that time he stated that he was not feeling well. That he was short of breath and having a difficult time walking short distances in his home due to dyspnea. He also states mentioned that 1.5 weeks ago (3 weeks prior to presentation today) both of his feet went numb and "dropped" and he was having a difficult time ambulating. Daughter reports that the numbness of the left foot largely resolved but patient was still complaining of numbness in the left foot with difficulty ambulating. The patient lives alone in an apartment over a store in [place]. This AM he was feeling confused and was unable to remember his own name. He shouted down to the landlord that he was confused. The landlord called the patient's daughter and then EMS. Patient was transported to [facility]. On arrival here he was found to be afebrile, hypertensive at 190/97, tachypneic at 25bpm and saturating 89% on room air. He was placed on 2L NC with improvement in saturation to 96%. CTA of the chest in full detail below confirmed presence of bilateral PEs with concern for septic emboli vs multifocal masses with an infiltrate vs mass in the right base. Patient also with bulky right hilar and mid-mediastinal adenopathy with interstitial infiltrative changes in the right lung. Head CT with an ill- defined hypodensity in the inferior left temporal lone, artifact vs acute infarct. Patient answers "Dalton Pimentel" and "I don't know" to all questioning. ER Course: Ampicillin 2gm, Ceftriaxone 2gm, Dexamethasone 10mg IV, Heparin gtt, NSS x 2 L, Vancomycin 1750mg Discharge Data Consultations 11/12/18 10:45 ED Decision to Admit Stat 11/12/18 12:58 Consult Pulmonology Routine Procedures Performed MRI OF THE BRAIN WITHOUT AND WITH IV CONTRAST CLINICAL HISTORY: Acute change in mental status. Confusion, left-sided numbness. Possible stroke. COMPARISON STUDY: CT scan dated 11/12/2018 TECHNIQUE: MRI of the brain was performed from the vertex to the skull base utilizing various T1 and T2 weighted sequences. Following the IV administration of 8 mL of Gadavist contrast, additional enhanced images were obtained. FINDINGS: Sagittal T1, axial diffusion, proton density and T2 weighted axial, coronal FLAIR, and pre and post axial T1-weighted images were acquired. These were supplemented with post gadolinium coronal T1 weighted images. No intra or extra-axial mass lesions are visualized. There is a large area of restricted water diffusion involving portions of the left temporal occipital and parietal lobes. In addition there are punctate foci restricted water diffusion within the right hemisphere involving the right frontal lobe parietal lobe and occipital lobe. The findings are indicative of acute cerebral infarcts. Given the bilateral distribution, embolic etiology must be considered. There is no evidence of ventricular dilatation. Proton density T2-weighted and FLAIR images reveal scattered foci of increased T2 signal within the white matter, likely on a small vessel basis. In addition there is a confluent area of increased FLAIR signal within the left temporal and parietal lobe consistent with an acute infarct. There are no abnormal flow voids. There is no evidence of pathologic enhancement. IMPRESSION: 1. Large acute infarct involving portions the left temporal occipital and parietal lobes 2. In addition there are scattered small foci of restricted water diffusion involving portions of the right frontal, parietal and occipital lobes, indicative of additional acute infarcts 3. Given the multifocal distribution of the acute infarcts, an embolic etiology must be considered. Electronically signed by: Victor Hugo Bliss M.D. 11/12/2018 7:48 PM Dictated: 11/12/181940 Transcribed: 11/12/181940 CT angio chest PE protocol CT DOSE: 1488.32 mGy.cm HISTORY: Chest pain PE TECHNIQUE: Multiaxial CT images of the chest were performed following the intravenous administration of contrast to evaluate the pulmonary arteries. Maximal intensity projection images were also obtained. A dose lowering technique was utilized adhering to the principles of ALARA. COMPARISON STUDY: None. FINDINGS: Bilateral diffuse pulmonary emboli. Consolidative infiltrate right base versus potential mass measuring 7.5 cm. Multifocal parenchymal nodularity versus infiltrative change throughout both hemithoraces. Diffuse increase in right hemithoracic markings. Adenopathy involving the right hilum mediastinum and subcarinal region. Possibility of an underlying neoplastic process versus septic emboli must be considered. IMPRESSION: 1. Study is positive for bilateral pulmonary emboli. 2. Multifocal masses versus septic emboli bilaterally with conglomerate masslike process right base versus consolidative infiltrate. 3. Bulky right hilar as well as mid mediastinal adenopathy. 4. Multifocal septic emboli versus neoplasm must be considered. 5. Superimposed interstitial infiltrative changes throughout the right lung. The above report was generated using voice recognition software. It may contain grammatical, syntax or spelling errors. Electronically signed by: Jamal Luna M.D. 11/12/2018 10:29 AM Dictated: 11/12/[address] head/brain wo con CLINICAL HISTORY: 58 years-old Male with Stroke evaluation . Acute strokelike symptoms TECHNIQUE: Multiple axial CT images of the head were obtained without contrast. A dose lowering technique was utilized adhering to the principles of ALARA. COMPARISON: CTA head neck of same day. FINDINGS: No acute intracranial hemorrhage, midline shift, intracranial mass, hydrocephalus, or abnormal extra-axial collection. Cerebral arterial calcifications noted. Ill-defined hypodensity noted about the left temporal lobe with possible blurring of the shaffer-white interface. The calvarium is intact. Mastoid air cells and middle ear cavities are clear. Mild mucosal thickening about the ethmoid air cells. Soft tissues and orbits appear unremarkable. IMPRESSION: 1. No acute intracranial hemorrhage, or midline shift. 2. Ill-defined hypodensity about the inferior left temporal lobe may be a rtifactual or reflective of underlying acute infarction about the left MCA territory. Correlation clinically recommended. The above report was generated using voice recognition software. It may contain grammatical, syntax or spelling errors. Electronically signed by: Dale Heard M.D. 11/12/2018 10:21 AM Dictated: 11/12/18 1016 Transcribed: 11/12/18 1016 Hospital Course (1) Bilateral pulmonary embolism: Presently HD stable. Requiring minimal O2 via NC -Heparin gtt, no bolus given -Check BNP -Monitor closely for VS instability -Echocardiogram obtained with mild LVH, normal LV function with EF of 60 - 65%, no vegetation or valvular disease appreciated (2) Lung mass: Multifocal lesions vs septic emboli. Patient with history of smoking. Does not routinely see a physician -Sputum for gram stain/culture and cytology -Consult Pulmonology - appreciate assistance (3) Altered mental status: Possibly secondary to hypoxia, underlying infection -Check Ammonia level, TSH, Utox -Check ABG to assess degree of hypoxia -Correction of dehydration -Infectious workup and IV antibiotics as below -Supplemental O2 (4) Hypoxia: Most likely secondary to PE, possible malignancy vs septic emboli, ?underlying COPD/Asthma -Check ABG -Supplemental O2 as needed to maintain sats > 94 (5) Pneumonia: Afebrile, mild leukocytosis -Check procalcitonin -Sputum culture and gram stain -Vancomycin, Zosyn and Azithromycin for broad coverage initially, tailor pending culture results and clinical condition -Follow culture results (6) Weakness of left foot: ?CVA vs peripheral nerve compression. Patient with history of multiple back surgeries. Symptoms of possible foot drop began 3 weeks ago per daughter -MRI Brain -MRI L spine pending results of brain study -PT/OT eval when clinical condition improves F/E/N - LR at 125mL/hr x 2 liters, monitor electrolyltes and replete as needed Ppx - Heparin gtt Code - Full Patient found to have extensive bilateral cerebral emboli thought to be secondary to embolic source. Presently he is neurologically stable. Given the extent of his infarcts I feel this patient is best served at a facility that has a Neuro ICU and Neurosurgical services. Patient will be transferred to [facility], Service of Dr. Dillon. Patient updated and is in agreement with transfer. Patient's daughter updated ([phone]) (7) CVA (cerebral vascular accident): Discharge Instructions Patientto be transferred to [facility]
[2018-11-12] MEDS ORDERED: Heparin IV Low Dose *NO* Bolus IV SCH (23:55)
--- NOTE | 2018-11-13 02:03 | Consultation Report ---
DATE OF CONSULTATION: 11/12/2018 REPORT OF CONSULTATION: The patient was seen in room 229, bed 2. He is an extremely poor historian. I was unable to obtain any information of significance from him. He was brought to the Emergency Room today. Reportedly, he was last known to be well 2 days ago. He lives above a convenience store. Reportedly, he had not been feeling well last week with cold symptoms. He apparently was buying some cold medicines. He had a convenience store earlier this week. The patient as noted, cannot give me any history. When he came to the Emergency Room, he was found to be somewhat hypertensive with a blood pressure of 190/97. He was tachypneic with 25 breaths per minute. Room air saturation was 89%. The patient has been undergoing a workup since he came in. He had a CAT scan of his head earlier today that showed an ill-defined hypodensity at the inferior left temporal lobe. He had a chest x-ray done that suggested an infiltrate throughout much of the right chest. A CT angio of the chest was done. This showed bilateral pulmonary emboli. There was a mass-like density at the right lung base measuring 7.5 cm. There were patchy areas of infiltrates elsewhere. There was marked adenopathy in the right hilum and in the mediastinum. The patient has been afebrile since he presented. According to nursing staff, he is getting a little more alert. He was talking some, but not making sense. He could not tell me where he was. He could not tell me the month or the day. He was talking about his sister in [place]. His nurse tells me that they have had conversations with the family and reportedly that is his daughter in [place], but the patient denies to me that he has a daughter in [place]. There is a report in the chart that he has had some foot drop for a few weeks. PAST MEDICAL HISTORY: Unknown. MEDICATIONS AT HOME: Unknown. FAMILY HISTORY: Unknown. ALLERGIES: Unknown. REVIEW OF SYSTEMS: Unobtainable. PHYSICAL EXAMINATION: GENERAL: The patient is a 58-year-old male who was cooperative. He was very weak. His speech was not always clear. He did answer to his name of Dalton Pimentel. HEENT: Pupils were reactive. Nares were unremarkable. Mouth exam shows dentures on top and numerous teeth missing on the bottom with those present in poor repair. He has some areas of scars or bleeding on the right side of his neck a bit. No definite lymph nodes were palpable. VITAL SIGNS: Temperature was 36.8. Heart rate was 82 per minute. Rhythm regular. Blood pressure 152/83. CHEST: Lung quintana revealed rales throughout the right chest. Left lung was fairly clear. Respiratory rate 18, saturation 86% on room air. ABDOMEN: Soft. He had a scar on the left lower abdominal region. He could not tell me what that was from. A moderate-sized umbilical hernia was noted. There was no tenderness to palpation. EXTREMITIES: Showed no cyanosis, clubbing or edema. LABORATORY DATA: White count is 13.67. Hemoglobin is 15.8. Platelets 170,000. Coags were unremarkable. Blood gas showed a pH of 7.48, pCO2 of 28 and a pO2 of 56 done on 2 L. Phosphorus level was 2.1. Ammonia was less than 10. Troponin was elevated at 0.275. ProBNP 710. TSH 0.205. Procalcitonin 0.09. Alkaline phosphatase was slightly elevated at 122. Earlier troponin was 0.298. AST and ALT were normal. Electrolytes show sodium 136, potassium 3.4, chloride 105, bicarb 25. Blood sugar 152. The BUN was 15 with a creatinine of 1.12. Drug screen was positive for marijuana. Flu test was negative. Lyme test was negative. Blood cultures were drawn but of course are pending. EKG showed a normal sinus rhythm. No acute changes noted. Echocardiogram showed ejection fraction 60%-65%. Grade 1 diastolic dysfunction noted. Right ventricle was normal. IMPRESSION: 1. Right lower lobe mass-like density -- questionable neoplasm versus infection. 2. Mediastinal and hilar adenopathy -- suspicious for malignancy. 3. Rule out lymphangitic spread of tumor in the right chest. 4. Rule out pneumonia. 5. Bilateral pulmonary embolism. COMMENTS AND RECOMMENDATIONS: The patient has densities in the right chest that I suspect are more likely to be malignant with an inability to exclude infection. The rapid onset of symptoms would make infection more likely, but nonetheless the hilar and mediastinal adenopathy is larger than one would typically see with infectious etiologies. I am supportive of continuing antibiotic coverage for a potential infection. Currently, he is on vancomycin, azithromycin and Zosyn. The patient is on heparin. I would continue the heparin for now. This would be a good choice in case he needs a diagnostic procedure in the near future. I would obtain venous Dopplers of both lower extremities. He is apparently to have an MRI of the brain this evening. I will make further suggestions as his course unfolds. Thank you for asking me to assist in his care.
[2018-11-13 05:51] LABS: Estimated Average Glucose 114 mg/dl; Hemoglobin A1C 5.6 % (4.5-5.6)
[2018-11-13] MEDS ORDERED: AZITHROMYCIN 250 MG in DEXTROSE 5% 250 ML IV SCH (09:00)
== END 2018-11-13 04:57 | disposition short-term general hospital (02) | DRG 64 ==
LOC: ED 09:10 → 2S 11:51